=== PATIENT | male | born 1980 | race Caucasian/White ===

== ENCOUNTER 2019-02-12 22:30 | Emergency (ER) | payer MEDICAID ==
[~2019-02-12] VITALS: Ht 170.2 cm; Wt 113.4 kg
[2019-02-12 22:41] VITALS: BP 136/72
[2019-02-12] MEDS ORDERED: HYDROCODONE/APAP 5/325MG 1 EACH TABLET PO ONE (23:00)
[2019-02-12] MEDS ORDERED: HYDROCODONE/APAP 5/325MG 1 EACH TABLET ONE (23:02)
== END 2019-02-13 00:39 | disposition home or self-care (01) ==
LOC: ER 22:33
DX: S80.01XA Contusion of right knee, initial encounter (principal); Z98.890 Other specified postprocedural states; W18.09XA Striking against other object with subsequent fall, initial encounter; Y93.89 Activity, other specified; Y92.511 Restaurant or cafe as the place of occurrence of the external cause; Y99.8 Other external cause status
CPT/HCPCS: 73564-TC

== ENCOUNTER 2020-04-02 11:21 | Emergency (ER) | payer MEDICAID ==
[~2020-04-02] VITALS: Ht 170.2 cm; Wt 122.5 kg
[2020-04-02 11:31] VITALS: BP 140/95
--- NOTE | 2020-04-02 12:14 | NUR ---
Patient discharged to home in stable condition. Written and verbal after care instructions given. Patient verbalizes understanding of instruction.
== END 2020-04-02 12:14 | disposition home or self-care (01) ==
LOC: ER 11:23
DX: M25.531 Pain in right wrist (principal); Z98.890 Other specified postprocedural states; V19.88XA Pedal cyclist (driver) (passenger) injured in other specified transport accidents, initial encounter; Y93.89 Activity, other specified; Y92.89 Other specified places as the place of occurrence of the external cause; Y99.8 Other external cause status